=== PATIENT | female | born 1945 | race African-American/Black ===

== ENCOUNTER 2017-08-12 09:02 | Observation (INO) ==
[2017-08-12] MEDS ORDERED: ONDANSETRON 4 MG/2 ML VIAL IV STA (10:22)
[2017-08-12] MEDS ORDERED: ONDANSETRON 4 MG/2 ML VIAL ONE (11:36)
[2017-08-12 11:47] LABS: Basophils # 0.1 10*3/uL (0.0-0.2); Basophils % 0.5 % (0.0-0.8); Eosinophils # 0.1 10*3/uL (0.0-0.87); Hematocrit 41.2 VOL% (35.7-47.0); Hemoglobin 13.6 GM/DL (12.0-16.0); Immature Granulocytes % 0.3 %; Immature Granulocytes Absolute 0.05 #; Lymphocytes # 4.6 10*3/uL (1.4-4.0); Lymphocytes % 31.2 % (21.3-54.2); Mean Corpuscular Hemoglobin 29 PG (27-34); Mean Corpuscular Volume 88.6 FL (87-102); Mean Platelet Volume 10.7 FL (9.6-12.0); Monocytes # 0.7 10*3/uL (0.11-0.8); Neutrophils # 9.1 10*3/uL (1.4-7.4); Platelet Count 248 T/CUMM (130-400); Red Blood Count 4.65 MC/CUMM (3.8-5.5); Red Cell Distribution Width 13.4 % (9.3-17.3); White Blood Count 14.7 T/CUMM (4-12)
[2017-08-12 12:20] LABS: Albumin 3.8 G/DL (3.4-5.0); Bilirubin,Total 0.7 MG/DL (0.2-1.0); Calcium 9.8 MG/DL (8.5-10.1); Osmolality,Calculated 275.5 MOS/KG (273-304); Potassium 4.7 MMOL/L (3.5-5.1); Total Protein 7.5 G/DL (6.4-8.3)
[2017-08-12] MEDS ORDERED: methylPREDNISolone SOD SUC 40 MG/1 ML VIAL ONE (13:12)
[2017-08-12] MEDS ORDERED: LEVOFLOXACIN INJ 100 ML IV ONE (13:12)
[2017-08-12 14:54] LABS: Apearance,Urine CLEAR (Clear); Bilirubin,Urine Negative (Negative); Blood, Urine Small mg/dL (Negative); Glucose,Urine (UA) Negative (Negative); Ketones,Urine Negative (Negative); Mucus,Urine Occasional /LPF (Occasional); Nitrite,Urine Negative (Negative); Protein,Urine Negative; RBC,Urine 1 /HPF (0-4); Urine Color Straw (Yellow); Urine Specific Gravity 1.006 (1.001-1.035); Urine Urobilinogen < 2.0 EU/DL (0.2-1.0); WBC,Urine <1 /HPF (0-6)
[2017-08-12] MEDS ORDERED: HYDROmorphone 2 MG/1 ML VIAL IV PRN (16:17)
[2017-08-12] MEDS ORDERED: ONDANSETRON 4 MG/2 ML VIAL IV PRN (16:17)
[2017-08-12] MEDS ORDERED: ACETAMINOPHEN 325 MG TABLET PO PRN (16:17)
[2017-08-12] MEDS ORDERED: FUROSEMIDE 20 MG/2 ML VIAL IV ONE (18:41)
[2017-08-12] MEDS ORDERED: LISINOPRIL 10 MG TABLET PO ONE (20:00)
[2017-08-13 05:32] LABS: Basophils # 0.1 10*3/uL (0.0-0.2); Basophils % 0.6 % (0.0-0.8); Eosinophils # 0.3 10*3/uL (0.0-0.87); Eosinophils % 2.2 % (0.00-10.9); Hematocrit 38.3 VOL% (35.7-47.0); Hemoglobin 13.1 GM/DL (12.0-16.0); Immature Granulocytes % 0.4 %; Immature Granulocytes Absolute 0.05 #; Lymphocytes # 4.5 10*3/uL (1.4-4.0); Lymphocytes % 34.7 % (21.3-54.2); Mean Corpuscular HGB Conc 34.2 GM/DL (32-36); Mean Corpuscular Hemoglobin 30 PG (27-34); Mean Corpuscular Volume 87.2 FL (87-102); Mean Platelet Volume 10.8 FL (9.6-12.0); Monocytes # 0.8 10*3/uL (0.11-0.8); Monocytes % 6.1 % (1.7-12.7); Neutrophils # 7.3 10*3/uL (1.4-7.4); Platelet Count 243 T/CUMM (130-400); Red Blood Count 4.39 MC/CUMM (3.8-5.5); Red Cell Distribution Width 13.6 % (9.3-17.3)
[2017-08-13 06:03] LABS: Calcium 8.9 MG/DL (8.5-10.1); Osmolality,Calculated 275.5 MOS/KG (273-304); Potassium 3.9 MMOL/L (3.5-5.1)
[2017-08-13] MEDS ORDERED: ceFAZolin 1,000 MG in SYRINGE 1 EACH IV ONE (06:30)
[2017-08-13] MEDS ORDERED: DIAZEPAM 5 MG TABLET PO ONE (06:30)
[2017-08-13] MEDS ORDERED: FAMOTIDINE 20 MG TABLET PO ONE (06:30)
[2017-08-13] MEDS ORDERED: LISINOPRIL/HCTZ 10-12.5 MG TABLET PO SCH (09:00)
[2017-08-13] MEDS: PANTOPRAZOLE 40 MG TABLET PO SCH (11:19)
[2017-08-13] MEDS ORDERED: LIDOCAINE 1%/EPI INJ 20 ML VIAL ONE (12:11)
[2017-08-13] MEDS ORDERED: BUPIVACAINE 0.25% 50 ML VIAL ONE (12:11)
[2017-08-13] MEDS ORDERED: TISSUE ADHESIVE 1 EACH APPLICATOR TOP ONE (12:11)
[2017-08-13] MEDS: LACTATED RINGERS 1,000 ML IV SCH ×2 (12:15→14:38)
[2017-08-13] MEDS ORDERED: HYDROmorphone 2 MG/1 ML VIAL ONE (13:32)
[2017-08-13] MEDS ORDERED: ONDANSETRON 4 MG/2 ML VIAL ONE ×2 (13:32→13:39)
[2017-08-13] MEDS: HYDROmorphone 2 MG/1 ML VIAL IV PRN ×2 (13:35→13:40)
[2017-08-13] MEDS ORDERED: PROPOFOL 200 MG/20 ML VIAL IV ONE (13:38)
[2017-08-13] MEDS ORDERED: SEVOFLURANE 1 UNIT/15 MINUTE INH ONE (13:38)
[2017-08-13] MEDS ORDERED: NEOSTIGMINE 10 MG/10 ML VIAL ONE (13:39)
[2017-08-13] MEDS ORDERED: MIDAZOLAM 2 MG/2 ML VIAL ONE (13:39)
[2017-08-13] MEDS ORDERED: KETOROLAC 30 MG/1 ML VIAL ONE (13:39)
[2017-08-13] MEDS ORDERED: DEXAMETHASONE 10 MG/1 ML VIAL ONE (13:39)
[2017-08-13] MEDS ORDERED: ROCURONIUM 100 MG/10 ML VIAL IV ONE (13:39)
[2017-08-13] MEDS ORDERED: ACETAMINOPHEN 1,000 MG/100 ML VIAL IV ONE (13:39)
[2017-08-13] MEDS ORDERED: GLYCOPYRROLATE 0.4 MG/2 ML VIAL ONE (13:39)
[2017-08-13] MEDS ORDERED: fentaNYL 100 MCG/2 ML VIAL ONE (13:39)
[2017-08-13] MEDS ORDERED: ONDANSETRON 4 MG/2 ML VIAL IV PRN (13:52)
[2017-08-13] MEDS ORDERED: LISINOPRIL 20 MG TABLET PO ONE ×2 (18:39)
[2017-08-13] MEDS: LISINOPRIL 20 MG TABLET PO SCH (22:44)
[2017-08-14 06:54] LABS: Basophils % 0.1 % (0.0-0.8); Hematocrit 38.7 VOL% (35.7-47.0); Immature Granulocytes % 0.5 %; Immature Granulocytes Absolute 0.06 #; Lymphocytes # 2.3 10*3/uL (1.4-4.0); Lymphocytes % 19.1 % (21.3-54.2); Mean Corpuscular HGB Conc 33.6 GM/DL (32-36); Mean Corpuscular Hemoglobin 30 PG (27-34); Mean Corpuscular Volume 88.6 FL (87-102); Mean Platelet Volume 11.1 FL (9.6-12.0); Monocytes # 0.7 10*3/uL (0.11-0.8); Monocytes % 5.9 % (1.7-12.7); Neutrophils # 8.9 10*3/uL (1.4-7.4); Neutrophils % 74.4 % (38.7-73.9); Platelet Count 241 T/CUMM (130-400); Red Blood Count 4.37 MC/CUMM (3.8-5.5); Red Cell Distribution Width 13.2 % (9.3-17.3); White Blood Count 11.9 T/CUMM (4-12)
[2017-08-14 07:25] LABS: Calcium 9.3 MG/DL (8.5-10.1); Osmolality,Calculated 273.8 MOS/KG (273-304); Potassium 4.3 MMOL/L (3.5-5.1)
[2017-08-14] MEDS: LISINOPRIL 20 MG TABLET PO SCH (09:02)
[2017-08-14] MEDS: PANTOPRAZOLE 40 MG TABLET PO SCH (09:03)
[2017-08-14 12:09] VITALS: BP 159/55
== END 2017-08-14 12:54 | disposition home or self-care (01) ==
LOC: N.EDINP 09:02 → N.ED 09:02 → N.EDINP 15:46 → N.5E 16:08
PROVIDERS: ADMIT Internal Medicine; ATTEND Internal Medicine
PROC: LAPCHOL (2017-08-13 12:13)